=== PATIENT | female | born 1990 | race Caucasian/White ===

== ENCOUNTER → 2020-05-16 17:25 | Outpatient (CLI) | payer OTHER, SELFPAY ==
--- NOTE | 2020-05-16 17:31 | DI.RAD.S_ITS ---
PROCEDURE: XR HAND RT MIN 3V INDICATIONS: Right fingers smashed in pinch point TECHNIQUE: 3 views of the hand(s) acquired. COMPARISON: None. FINDINGS: Bones: No fractures or dislocations. Carpal bones are normally aligned. No suspicious bony lesions. Soft tissues: No suspicious soft tissue calcifications. IMPRESSION: No displaced fractures are seen on these plain films. If there is focal tenderness, or other clinical concern for a fracture not seen on these images in this patient with a given history of trauma, please consider a dedicated CT or a short-term followup plain film series (in 1-2 weeks) for further evaluation. Dictated by: Ross Carlton M.D. on 05/16/2020 at 16:48 Approved by: Ross Carlton M.D. on 05/16/2020 at 16:48
== END ==
PROVIDERS: PCP Nurse Practitioner Family; Referring Provider Nurse Practitioner Family; Visit Provider Nurse Practitioner Family
DX: S67.21XA Crushing injury of right hand, initial encounter (principal); W27.8XXA Contact with other nonpowered hand tool, initial encounter
CPT/HCPCS: 73130

== ENCOUNTER → 2021-01-25 14:43 | Outpatient (CLI) | payer OTHER, MEDICAID, SELFPAY ==
--- NOTE | 2021-01-25 14:46 | DI.US.S_ITS ---
LIMITED ULTRASOUND OF LEFT BREAST: 01/25/2021 CLINICAL: Palpable left breast lump. No prior exams were available for comparison. Real-time ultrasound of the left breast 9 o'clock region was performed. Acuña scale images of the real-time examination were reviewed. No significant abnormalities were seen sonographically in the left breast in the region of the palpable abnormality. IMPRESSION: NEGATIVE There is no sonographic evidence of malignancy. Return to annual mammogram screening schedule is recommended. Exam findings were conveyed to the patient. Patient is advised to monitor for significant change. Clinical follow-up as needed. This exam was interpreted at Station ID: [id number]. Electronically Signed By: Kee King M.D. slc/:01/25/2021 15:56:34 letter sent: Normal Exam Ultrasound BI-RADS: 1 Negative
== END ==
PROVIDERS: PCP Nurse Practitioner Family; Referring Provider Family Medicine; Visit Provider Family Medicine
DX: N63.25 Unspecified lump in the left breast, overlapping quadrants (principal)
CPT/HCPCS: 76642

== ENCOUNTER → 2021-04-26 15:17 | Outpatient (CLI) | payer BC, OTHER, MEDICAID, SELFPAY ==
--- NOTE | 2021-04-26 15:18 | DI.RAD.S_ITS ---
PROCEDURE: XR WRIST LT MIN 3V INDICATIONS: left wrist pain limited ROM TECHNIQUE: 4 views of the wrist were acquired. COMPARISON: None. FINDINGS: Bones: No fractures or dislocations. No suspicious bony lesions. Scaphoid view: There is a 0.6 cm sclerotic lesion in scaphoid, most likely a bone island. Soft tissues: No suspicious soft tissue calcifications. IMPRESSION: 1. No acute osseous abnormalities. 2. A 0.6 cm sclerotic focus in the scaphoid, most likely a bone island. Dictated by: Nam Silva M.D. on 04/26/2021 at 16:49 Approved by: Nam Silva M.D. on 04/26/2021 at 16:50
== END ==
PROVIDERS: PCP Nurse Practitioner Family; Referring Provider Nurse Practitioner Family; Visit Provider Nurse Practitioner Family
DX: M25.532 Pain in left wrist (principal); M89.9 Disorder of bone, unspecified
CPT/HCPCS: 73110

== ENCOUNTER → 2024-04-19 12:07 | Outpatient (CLI) | payer OTHER, SELFPAY ==
[2024-04-19 13:47] LABS: Alanine Aminotransferase 28 IU/L (<35); Albumin 4.5 g/dL (3.5-5.0); Albumin Globulin Ratio 1.8 (1.0-2.8); Alkaline Phosphatase 119 U/L (38-126); Aspartate Aminotransferase 26 IU/L (14-36); BUN Creatinine Ratio 15.2 (6-22); Bilirubin Total 0.4 mg/dL (0.2-1.3); Blood Urea Nitrogen 15 mg/dL (7-17); Calcium 9.9 mg/dL (8.4-10.2); Carbon Dioxide 28 mmol/L (22-32); Chloride 101 mmol/L (98-107); Estimated Glomerular Filt Rate > 60 mL/min (>60); Globulin 2.5 g/dL (1.7-4.1); Glucose 96 mg/dL (70-100); HEMOLYSIS 19 (0-50); Potassium 4.8 mmol/L (3.4-5.1); Sodium 137 mmol/L (137-145)
[2024-04-19 15:17] LABS: Estradiol, Total 21.3 pg/mL
[2024-04-30 08:12] LABS: Percent Free Testosterone 2.19 % (0.50-2.80); Testosterone Free 0.37 ng/dL (0.10-0.85); Testosterone Total 16.8 ng/dL (10.0-55.0)
== END ==
PROVIDERS: PCP Student in an Organized Health Care Education/Training Program; Referring Provider Student in an Organized Health Care Education/Training Program; Visit Provider Student in an Organized Health Care Education/Training Program
DX: F64.0 Transsexualism (principal); Z87.890 Personal history of sex reassignment
CPT/HCPCS: 36415; 80053; 82670; 84402; 84403

== ENCOUNTER → 2024-08-16 12:43 | Outpatient (CLI) | payer OTHER, SELFPAY ==
--- NOTE | 2024-08-16 12:44 | DI.MG.S_ITS ---
US breast RT limited, MM diagnostic mammo implant BI: 08/16/2024 BI-RADS: 1 CLINICAL: 34-year old female for bilateral diagnostic mammogram and right diagnostic breast ultrasound. Tyrer-Cuzick lifetime risk of 13.5%. No personal or first-degree family history of breast cancer. The patient reports a palpable abnormality (1 month) and pain (1 month) in both breasts. The patient has bilateral implants. PRIOR EXAMS 01/25/2021. MAMMOGRAPHY TECHNIQUE: 2D and 3D (tomosynthesis) digital mammographic views obtained, with additional images as needed for full coverage. Current study was also evaluated with a Computer Aided Detection (CAD) system. ULTRASOUND TECHNIQUE Real-time james scale and color doppler imaging of the area of clinical interest was performed with image documentation. TARGETED Right Breast Ultrasound: Real-time ultrasound exam was performed focused to area of clinical and/or imaging concern. DENSITY C. The breasts are heterogeneously dense, which may obscure small masses. MAMMOGRAPHY FINDINGS Bilateral There is no suspicious mammographic finding to account for clinical concern of a palpable lump and pain/tenderness. Ultrasound recommended for further evaluation. No suspicious mass, asymmetry, microcalcification, or other abnormality seen. Silicone implants. ULTRASOUND FINDINGS Right: Fibroglandular tissue in the region of concern. No mass or cyst. IMPRESSION: * No evidence of malignancy. RECOMMENDATIONS * Left breast could not be performed at time of visit. Left breast US is recommended for the left breast focal pain and palpable abnormality. Left * Further evaluation with diagnostic ultrasound. OVERALL ASSESSMENT CATEGORY BI-RADS-1: Negative. [employer] recommends annual screening mammography beginning at age 40 for women with average risk of breast cancer. ELECTRONICALLY SIGNED: Kee King M.D. on 08/16/2024 at 02:54:10 PM PT Interpreting Station ID: [id number]
== END ==
LOC: MAMMO 12:44
PROVIDERS: PCP Student in an Organized Health Care Education/Training Program; Referring Provider Student in an Organized Health Care Education/Training Program; Visit Provider Student in an Organized Health Care Education/Training Program
DX: N63.41 Unspecified lump in right breast, subareolar (principal); N64.4 Mastodynia; R92.333 Mammographic heterogeneous density, bilateral breasts; Z98.82 Breast implant status
CPT/HCPCS: 76642; 77066; G0279

== ENCOUNTER 2024-09-14 19:58 | Emergency (ER) | payer OTHER, SELFPAY ==
[2024-09-14 20:26] VITALS: BP 154/89; PULSE 86; RESP 18; TEMP 36.9; O2SAT 98; BMI 25.9
== END 2024-09-15 00:31 | disposition left against medical advice (07) ==
PROVIDERS: Emergency Provider Emergency Medicine; PCP Student in an Organized Health Care Education/Training Program
CPT/HCPCS: 99281